=== PATIENT | female | born 1975 | race Caucasian/White ===

== ENCOUNTER 2020-03-14 20:32 | Emergency (ER) | payer OTHER ==
[2020-03-14] MEDS ORDERED: DEXAMETHASONE 10 MG/ML VIAL PO STA (21:11)
[2020-03-14] MEDS ORDERED: CHERRY SYRUP 10 ML UDC PO ONE (21:11)
[2020-03-14 21:23] LABS: RAPID STREP SCREEN Negative (Negative)
--- NOTE | 2020-03-14 21:28 | ED Physician Documentation ---
History of Present Illness - Stated complaint Stated Complaint: SWOLLEN GLANDS - Chief complaint Chief Complaint: Heent - History obtained from History obtained from: Patient - History of Present Illness Pain level max: 6 Pain level now: 5 - Additonal information Additional information: 44-year-old female presents to the emergency department for sore throat for the past week. She complains of swollen lymph nodes on her bilateral neck. No fevers. Intermittent headache. No rhinorrhea or congestion. No cough. Worse with swallowing, better with rest. History of recurrent strep throat in the past. No vomiting. No abdominal pain. Denies any possibility of . 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 - Present Medications Home Medications: Ambulatory Orders Medication Instructions Recorded Confirmed Cephalexin [Keflex] 500 mg PO Q6H #40 capsule 03/14/20 buPROPion [Wellbutrin Xl] 1 tab PO DAILY 03/14/20 03/14/20 predniSONE [Prednisone] 40 mg PO DAILY #10 tablet 03/14/20 - Allergies Allergies/Adverse Reactions: Allergies Allergy/AdvReac Type Severity Reaction Status Date / Time No Known Drug Allergies Allergy Verified 03/14/20 20:40 - Social History Does the pt smoke?: Yes Smoking Status: Current every day smoker Does the pt drink ETOH?: Yes ETOH Use: Wine Does the pt have substance abuse?: No - Immunizations Immunizations are current?: Yes - POLST Patient has POLST: No PD ED PE NORMAL - Vitals Vital signs reviewed: Yes - General General: Alert and oriented X 3, No acute distress - HEENT HEENT: Moist mucous membranes, Other (Posterior oropharynx is erythematous with tonsillar exudates. Normal phonation. No trismus. Uvula midline.) - Neck Neck: Supple, no meningeal sign, Other (Shotty anterior lymphadenopathy) - Cardiac Cardiac: RRR - Respiratory Respiratory: No respiratory distress, Clear bilaterally - Abdomen Abdomen: Soft, Non tender, Non distended - Derm Derm: Warm and dry - Neuro Neuro: Alert and oriented X 3 - Psych Psych: Normal mood, Normal affect Results - Vitals Vitals: Vital Signs - 24 hr 03/14/20 03/14/20 20:40 21:49 Temperature 37.1 C 36.3 C L Heart Rate 97 82 Respiratory 16 16 Rate Blood Pressure 146/96 H 146/94 H O2 Saturation 98 100 Oxygen O2 Source Room air - Labs Labs: Laboratory Tests 03/14/20 21:10 Group A Strep Rapid Negative PD MEDICAL DECISION MAKING - ED course Complexity details: reviewed results, considered differential, d/w patient ED course: Patient with what appears to be strep pharyngitis clinically. We did discuss alternative etiologies such as mono, she declines testing for that at this time. Given dexamethasone. We will place on Keflex as well. Patient is well-appearing, nontoxic. Afebrile. No evidence of abscess. No evidence of sepsis. Lymph nodes are small, mildly tender and mobile. Patient counseled regarding signs and symptoms for which I believe and urgent re-evaluation would be necessary. Patient with good understanding of and agreement to plan and is comfortable going home at this time This document was made in part using voice recognition software. While efforts are made to proofread this document, sound alike and grammatical errors may occur. Departure - Departure Disposition: 01 Home, Self Care Clinical Impression: Pharyngitis Qualifiers: Pharyngitis/tonsillitis etiology: unspecified etiology Qualified Code(s): J02.9 - Acute pharyngitis, unspecified Condition: Good Instructions: ED Strep Pharyngitis Poss Follow-Up: Provider,Other [Primary Care Provider] - Within 1 week Prescriptions: Cephalexin [Keflex] 500 mg PO Q6H #40 capsule predniSONE [Prednisone] 40 mg PO DAILY #10 tablet Comments: Take all antibiotics until gone. Return if you worsen. Follow-up with your doctor for repeat evaluation in 1 week. If you are still not feeling well, they should consider blood work at that time. Discharge Date/Time: 03/14/20 21:51
[2020-03-14] MEDS ORDERED: cephALEXin 250 MG CAPSULE PO STA (21:41)
[2020-03-14 21:51] VITALS: BP 146/94
== END 2020-03-14 21:51 | disposition home or self-care (01) ==
LOC: ED 20:32
DX: J02.9 Acute pharyngitis, unspecified (principal); F17.200 Nicotine dependence, unspecified, uncomplicated
CPT/HCPCS: 87070; 87430; 99283; 99284; A9270

== ENCOUNTER 2020-03-17 00:07 | Emergency (ER) | payer OTHER ==
--- NOTE | 2020-03-17 00:14 | ED Physician Documentation ---
History of Present Illness - Stated complaint Stated Complaint: LYMPH SWELLING - History obtained from History obtained from: Patient - Additonal information Additional information: Patient is a 44-year-old female presents with multiple complaints. She is complaining of severe anxiety and is concerned that she could possibly have lymphoma she reports that her mother is currently being treated for lymphoma and she feels like her entire lymphatic system no swelling. She denies any fevers she was seen here recently and was started on Keflex for presumed strep pharyngitis as well as prednisone. She reports after taking the prednisone that her hands and feet are swelling and she is unable to fall asleep she is also complaining of severe anxiety as her and 2 sons are moving to [place] and she will be away from them for significant period of time she denies auditory or visual hallucinations or any homicidal or suicidal thoughts Review of Systems Constitutional: reports: Other (Diffuse swelling) Eyes: reports: Reviewed and negative Ears: reports: Reviewed and negative Nose: reports: Reviewed and negative Throat: reports: Reviewed and negative Cardiac: reports: Reviewed and negative Respiratory: reports: Reviewed and negative GI: reports: Reviewed and negative : reports: Reviewed and negative Skin: reports: Reviewed and negative Musculoskeletal: reports: Other (Reports swelling of diffuse lymphatic system.) Neurologic: reports: Reviewed and negative Psychiatric: reports: Anxiety Endocrine: reports: Reviewed and negative Immunocompromised: reports: Reviewed and negative PD PAST MEDICAL HISTORY - Past Medical History Psych: Depression, Anxiety - Past Surgical History Past Surgical History: Yes General: Cholecystectomy 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 - Present Medications Home Medications: Ambulatory Orders Medication Instructions Recorded Confirmed Cephalexin [Keflex] 500 mg PO Q6H #40 capsule 03/14/20 buPROPion [Wellbutrin Xl] 1 tab PO DAILY 03/14/20 03/14/20 predniSONE [Prednisone] 40 mg PO DAILY #10 tablet 03/14/20 - Allergies Allergies/Adverse Reactions: Allergies Allergy/AdvReac Type Severity Reaction Status Date / Time No Known Drug Allergies Allergy Verified 03/14/20 20:40 - Social History Does the pt smoke?: Yes Smoking Status: Current every day smoker Does the pt drink ETOH?: Yes Does the pt have substance abuse?: No - Immunizations Immunizations are current?: Yes - POLST Patient has POLST: No PD ED PE NORMAL - Vitals Vital signs reviewed: Yes - General General: Alert and oriented X 3, No acute distress, Well developed/nourished - HEENT HEENT: Atraumatic, PERRL, Moist mucous membranes, Dentition benign - Neck Neck: Supple, no meningeal sign, No JVD, Other (There is no obvious anterior posterior cervical lymphadenopathy no occipital lymphadenopathy there is no thyromegaly no JVD and no bruits.) - Cardiac Cardiac: RRR, No murmur - Respiratory Respiratory: No respiratory distress, Clear bilaterally - Abdomen Abdomen: Normal bowel sounds, Soft, Non tender, Non distended, No organomegaly - Derm Derm: Normal color, Warm and dry, No rash - Extremities Extremities: No deformity, No tenderness to palpate, Normal ROM s pain, No edema, No calf tenderness / cord - Neuro Neuro: Alert and oriented X 3, quality assurance nurse 2-12 intact, No motor deficit, No sensory deficit, Normal speech - Psych Psych: Other (Anxious.) Results - Vitals Vitals: Vital Signs - 24 hr 03/17/20 00:22 Temperature 37.1 C Heart Rate 95 Respiratory 18 Rate Blood Pressure 150/95 H O2 Saturation 98 Oxygen O2 Source Room air - Labs Labs: Laboratory Tests 03/17/20 03/17/20 03/17/20 02:00 02:00 02:00 WBC 6.6 RBC 3.97 L Hgb 12.7 Hct 37.9 MCV 95.5 MCH 32.0 H MCHC 33.5 RDW 12.2 Plt Count 280 MPV 10.0 Neut # (Auto) 2.8 Lymph # (Auto) 2.9 [place] # (Auto) 0.7 Eos # (Auto) 0.1 Baso # (Auto) 0.1 Absolute Nucleated RBC 0.00 Nucleated RBC % 0.0 Sodium 139 Potassium 3.4 L Chloride 105 Carbon Dioxide 20 L Anion Gap 14.0 H BUN 19 Creatinine 0.5 Estimated GFR (MDRD) 135 Glucose 99 Calcium 8.5 Total Bilirubin 0.7 AST 17 ALT 20 Alkaline Phosphatase 56 Total Protein 5.9 L Albumin 3.8 Globulin 2.0 L Albumin/Globulin Ratio 1.8 Lipase 23 Infectious [place] Assay NEGATIVE PD MEDICAL DECISION MAKING - ED course Complexity details: considered differential ED course: 44-year-old female with anxiety presents with multiple complaints she is complaining of severe anxiety she feels like her entire body is swelling and then all of her lymph nodes are swelling she presents with her mother who is currently being treated for lymphoma. We did do screening blood work, Which shows no acute emergent findings. She had a rapid strep several days ago that was negative mono was negative today as well. We did send a COVID screening as well that the patient will need to follow-up on. She also reports she is new to the area and is having severe anxiety secondary to the fact that her mom has lymphoma and also that her and 2 sons are leaving this weekend to [place] and she will be away from them for an extended period of time. Departure - Departure Disposition: 01 Home, Self Care Clinical Impression: Anxiety Edema Qualifiers: Edema type: unspecified Qualified Code(s): R60.9 - Edema, unspecified Condition: Stable Instructions: ED Stress React, ED Edema Legs Bilateral Follow-Up: Yahir Ackerman MD [Provider Admit Priv/Credential] - 03/17/20 Comments: Discontinue prednisone. Please call a primary care provider today to schedule follow-up. Call the hospital to follow-up with your lab results.
[2020-03-17 02:16] LABS: BASOPHILS # (AUTO) 0.1 10^3/uL (0.0-0.1); BASOPHILS % (AUTO) 0.9 %; EOSINOPHILS # (AUTO) 0.1 10^3/uL (0.0-0.7); EOSINOPHILS % (AUTO) 1.5 %; HGB - HEMOGLOBIN 12.7 g/dL (12.0-16.0); LYMPHOCYTES # (AUTO) 2.9 10^3/uL (1.5-3.5); LYMPHOCYTES % (AUTO) 43.7 %; MEAN CORPUSCULAR HGB CONC 33.5 g/dL (32.0-36.0); MEAN CORPUSCULAR VOLUME 95.5 fL (81.0-99.0); MONOCYTES # (AUTO) 0.7 10^3/uL (0.0-1.0); NEUTROPHILS # (AUTO) 2.8 10^3/uL (1.5-6.6); NEUTROPHILS % (AUTO) 42.6 %; PLT - PLATELET COUNT 280 10^3/uL (130-450); RED BLOOD COUNT 3.97 10^6/uL (4.20-5.40); RED CELL DISTRIBUTION WIDTH 12.2 % (12.0-15.0); WHITE BLOOD COUNT 6.6 x10^3/uL (4.8-10.8)
[2020-03-17 02:29] LABS: ALBUMIN 3.8 g/dL (3.2-5.5); ALBUMIN/GLOBULIN RATIO 1.8 (1.0-2.2); BILIRUBIN,TOTAL 0.7 mg/dL (0.2-1.0); CALCIUM 8.5 mg/dL (8.5-10.3); CREATININE 0.5 mg/dL (0.4-1.0); TOTAL PROTEIN 5.9 g/dL (6.7-8.2)
[2020-03-17] MEDS ORDERED: LORazepam 1 MG TABLET PO STA (02:58)
[2020-03-17 03:26] VITALS: BP 140/83
== END 2020-03-17 03:26 | disposition home or self-care (01) ==
LOC: ED 00:07
DX: F41.9 Anxiety disorder, unspecified (principal); R60.9 Edema, unspecified; Z80.8 Family history of malignant neoplasm of other organs or systems; F17.200 Nicotine dependence, unspecified, uncomplicated; Z20.828 Contact with and (suspected) exposure to other viral communicable diseases
CPT/HCPCS: 36415; 80053; 83690; 85025; 86308; 87635; 99283; 99284; J8499

== ENCOUNTER 2020-11-29 01:03 | Emergency (ER) | payer OTHER ==
[2020-11-29 02:41] LABS: BILIRUBIN,URINE NEGATIVE (NEGATIVE); CLARITY,URINE CLEAR (CLEAR); GLUCOSE, URINE (UA) NEGATIVE (NEGATIVE); KETONES,URINE (UA) NEGATIVE (NEGATIVE); LEUKOCYTE ESTERASE, URINE NEGATIVE (NEGATIVE); NITRITE,URINE NEGATIVE (NEGATIVE); OCCULT BLOOD,URINE LARGE (NEGATIVE); PH,URINE 6.5 PH (5.0-7.5); PROTEIN,URINE NEGATIVE (NEGATIVE); UROBILINOGEN,URINE 0.2 (NORMAL) E.U./dL (NORMAL)
[2020-11-29 02:46] LABS: BACTERIA,URINE Few /HPF (None Seen); MUCUS,URINE Marked Strands; SQUAMOUS EPITHELIAL CELL,UR MOD Squamous (<= Few); WBC,URINE 0-3 /HPF (0-5)
--- NOTE | 2020-11-29 02:47 | ED Physician Documentation ---
PD HPI FEMALE - Stated complaint Stated Complaint: FEMALE - Chief complaint Chief Complaint: Abd Pain - History obtained from History obtained from: Patient - History of Present Illness Timing - onset: How many days ago (3) Timing - duration: Days (3) Timing - details: Gradual onset, Still present Associated symptoms: Dysuria, Urinary frequency, Hematuria. No: Fever Contributing factors: No: Similar symptoms before: Diagnosis (UTI) Recently seen: Emergency Dept - Additional information Additional information: 45-year-old female who has had urinary tract infection 3 times previously has had symptoms again of urinary urgency frequency and dysuria and she has noted blood in the urine as well. She has had blood in her urine previously from infection as well. She indicates that she recently went into the emergency department at [facility] last month and was prescribed antibiotic for urinary tract infection and she was called 4 days later in the antibiotics was switched from cephalexin to metronidazole. Her symptoms resolved. Her symptoms have now come back and she has blood in the urine. She denies any flank pain she is had some transient nausea. Review of Systems Constitutional: reports: Fatigue. denies: Fever Eyes: denies: Decreased vision Ears: denies: Ear pain Nose: denies: Rhinorrhea / runny nose, Congestion Throat: denies: Sore throat Cardiac: denies: Chest pain / pressure, Palpitations Respiratory: denies: Dyspnea, Cough GI: reports: Nausea. denies: Vomiting : reports: Dysuria, Frequency, Hematuria Skin: denies: Rash Musculoskeletal: reports: Back pain. 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 - Present Medications Home Medications: Ambulatory Orders Medication Instructions Recorded Confirmed Nitrofurantoin Monohyd/M-Cryst 100 mg PO BID #10 cap 11/29/20 [Macrobid 100 mg Capsule] - Allergies Allergies/Adverse Reactions: Allergies Allergy/AdvReac Type Severity Reaction Status Date / Time No Known Drug Allergies Allergy Verified 11/29/20 01:35 - Social History Does the pt smoke?: Yes Smoking Status: Current every day smoker Does the pt drink ETOH?: Yes Does the pt have substance abuse?: No - Immunizations Immunizations are current?: Yes - POLST Patient has POLST: No PD ED PE NORMAL - Vitals Vital signs reviewed: Yes (Hypertensive) - General General: Alert and oriented X 3, No acute distress, Well developed/nourished - HEENT HEENT: Atraumatic, PERRL, EOMI - Neck Neck: Supple, no meningeal sign - Cardiac Cardiac: RRR, No murmur - Respiratory Respiratory: No respiratory distress, Clear bilaterally - Abdomen Abdomen: Normal bowel sounds, Soft, Non distended, No organomegaly, Other (Mild suprapubic tenderness) - Back Back: No CVA TTP, No spinal TTP - Derm Derm: Normal color, Warm and dry, No rash - Extremities Extremities: No deformity, No edema - Neuro Neuro: Alert and oriented X 3, manager fixed income 2-12 intact, No motor deficit, No sensory deficit, Normal speech Eye Opening: Spontaneous Motor: Obeys Commands Verbal: Oriented GCS Score: 15 - Psych Psych: Normal mood, Normal affect Results - Vitals Vitals: Vital Signs - 24 hr 11/29/20 01:15 Temperature 36.6 C Heart Rate 95 Respiratory 18 Rate Blood Pressure 157/95 H O2 Saturation 100 Oxygen O2 Source Room air - Labs Labs: Laboratory Tests 11/29/20 01:50 Urine Color YELLOW Urine Clarity CLEAR Urine pH 6.5 Ur Specific [place] 1.025 Urine Protein NEGATIVE Urine Glucose (UA) NEGATIVE Urine Ketones NEGATIVE Urine Occult Blood LARGE H Urine Nitrite NEGATIVE Urine Bilirubin NEGATIVE Urine Urobilinogen 0.2 (NORMAL) Ur Leukocyte Esterase NEGATIVE Urine RBC 11-25 H Urine WBC 0-3 Ur Squamous Epith Cells MOD Squamous H Urine Bacteria Few Urine Mucus Marked Strands Ur Microscopic Review INDICATED Urine Culture Comments NOT INDICATED Procedures - Bedside sono Bedside sono by EMP: With use of bedside ultrasound the right kidney is imaged there is no evidence of hydronephrosis and the kidney is sonographically nontender. PD MEDICAL DECISION MAKING - ED course Complexity details: reviewed results, re-evaluated patient, considered differential, d/w patient ED course: 45-year-old female with urinary symptoms has hematuria and bacteria in her urine and she does not have leukocytes or nitrites and she has left squamous cells that she does not meet grade for culture. She is fairly certain her symptoms are identical to prior and she does have the hematuria. She is not on her menses she is about midcycle. She is diagnosed with hemorrhagic cystitis we will place her on a short course of Macrobid as she does prefer prefer a drink. Departure - Departure Disposition: Home, Self Care Clinical Impression: Urinary tract infection Qualifiers: Urinary tract infection type: acute cystitis Hematuria presence: with hematuria Qualified Code(s): N30.01 - Acute cystitis with hematuria Condition: Stable Instructions: ED UTI Cystitis Female Follow-Up: JACK Mccormickcharisma Matt [Provider Group] Prescriptions: Nitrofurantoin Monohyd/M-Cryst [Macrobid 100 mg Capsule] 100 mg PO BID #10 cap
[2020-11-29] MEDS ORDERED: NITROFURANTOIN MACRO 100 MG CAPSULE PO STA (03:56)
[2020-11-29 04:21] VITALS: BP 135/83
== END 2020-11-29 04:25 | disposition home or self-care (01) ==
LOC: ED 01:03
DX: N30.01 Acute cystitis with hematuria (principal); F17.200 Nicotine dependence, unspecified, uncomplicated
CPT/HCPCS: 81001; 99283; A9270; 81003; 87086

== ENCOUNTER 2022-11-20 00:18 | Emergency (ER) | payer MEDICAID, OTHER ==
--- NOTE | 2022-11-20 01:02 | ED Physician Documentation ---
PD HPI HEENT - Stated complaint Stated Complaint: THROAT PX - Chief complaint Chief Complaint: General - History obtained from History obtained from: Patient - History of Present Illness Timing - onset: How many weeks ago (2) Timing - duration: Weeks (2) Timing - details: Gradual onset, Still present Worsens: Swalllowing Associated symptoms: Fever, Swollen nodes, Headache, Other (worsening muscle aches diffusely and has noted small tender lumps under skin on arms and now legs. No rash per se.). No: Congestion, Facial swelling, Cough Similar symptoms before: Has not had sx before Review of Systems Constitutional: reports: Fever, Myalgias, Fatigue Nose: denies: Rhinorrhea / runny nose, Congestion Throat: reports: Sore throat, Swollen tonsils Respiratory: denies: Cough GI: reports: Nausea. denies: Abdominal Pain, Vomiting, Diarrhea Skin: denies: Rash Neurologic: reports: Generalized weakness, Headache. 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 - Present Medications Home Medications: Ambulatory Orders Medication Instructions Recorded Confirmed Nitrofurantoin Monohyd/M-Cryst 100 mg PO BID #10 cap 11/29/20 [Macrobid 100 mg Capsule] HYDROcod/ACETAM 5/325 [[place] 5/325] 1 ea PO Q6H PRN #15 tablet 11/20/22 cephALEXin [Keflex] 500 mg PO TID 10 Days #30 cap 11/20/22 dexAMETHasone [Decadron] 4 mg PO DAILY #5 tablet 11/20/22 - Allergies Allergies/Adverse Reactions: Allergies Allergy/AdvReac Type Severity Reaction Status Date / Time No Known Drug Allergies Allergy Verified 11/20/22 00:25 - Social History Does the pt smoke?: Yes Smoking Status: Current every day smoker Does the pt drink ETOH?: Yes Does the pt have substance abuse?: No - Immunizations Immunizations are current?: Yes - POLST Patient has POLST: No PD ED PE NORMAL - Vitals Vital signs reviewed: Yes - General General: Alert and oriented X 3, Well developed/nourished - HEENT HEENT: No: Pharynx benign (redness with swelling and exudate on tonsils, more to the left. Positive anterior adenopathy of neck. ) - Neck Neck: Supple, no meningeal sign - Cardiac Cardiac: RRR, No murmur, No rub - Respiratory Respiratory: No respiratory distress, Clear bilaterally - Abdomen Abdomen: Soft, Non tender, No organomegaly - Derm Derm: Normal color, Warm and dry, Other (there are several small tender lumps under skin along the dorsal aspect of forearms, and some on lateral lower legs. No skin sores. Major joints without redness nor effusions. ) - Extremities Extremities: No edema, No calf tenderness / cord, Other (tender several subcut nodules as above. ) - Neuro Neuro: Alert and oriented X 3, No motor deficit, Normal speech Results - Vitals Vitals: Vital Signs - 24 hr 11/20/22 11/20/22 00:21 02:53 Temperature 36.0 C L 36.6 C Heart Rate 91 83 Respiratory 18 18 Rate Blood Pressure 136/92 H 155/99 H O2 Saturation 100 100 Oxygen O2 Source Room air - Labs Labs: Laboratory Tests 11/20/22 11/20/22 11/20/22 01:42 01:58 01:58 WBC 5.5 RBC 3.92 L Hgb 11.0 L Hct 35.1 L MCV 89.5 MCH 28.1 MCHC 31.3 L RDW 13.6 Plt Count 290 MPV 10.0 Neut # (Auto) 2.3 Lymph # (Auto) 2.2 [place] # (Auto) 0.7 Eos # (Auto) 0.3 Baso # (Auto) 0.1 Absolute Nucleated RBC 0.00 Nucleated RBC % 0.0 Infectious [place] Assay NEGATIVE Group A Strep Rapid Negative PD Medical Decision Making - ED course Reviewed Lab Results: rapid strep is negative. [place] is negative. She has subcutaneous nodules on forearms, has had fever, and has polyarthralgias. No carditis evident. I had ordered ESR/CRP but did not run (not sure why cancelled and patient gone from ED). Still though, without the ESR, if the patient is positive culture for GAS, she would have 1 major and 2 minor criteria for RF. Otherwise just immune response to viral illness? Departure - Departure Disposition: 01 Home, Self Care Clinical Impression: Acute pharyngitis, Polymyalgia Condition: Stable Record reviewed to determine appropriate education?: Yes Instructions: ED Strep Pharyngitis Poss Prescriptions: dexAMETHasone [Decadron] 4 mg PO DAILY #5 tablet cephALEXin [Keflex] 500 mg PO TID 10 Days #30 cap HYDROcod/ACETAM 5/325 [[place] 5/325] 1 ea PO Q6H PRN #15 tablet PRN Reason: Pain Comments: Your monotest is negative. Your rapid strep test is negative but we are doing a culture of that swab. This would result in a couple of days and we will call you if its showing signs of bacterial growth. At this point it sounds most likely to be bacterial given your symptoms and the appearance of your tonsils. I would treated empirically to begin with with cephalexin antibiotic as well as Decadron steroid for inflammation. Stay well-hydrated. Add Tylenol every 4-6 hours as needed for pain or hydrocodone/acetaminophen if needed for worse pain. Recheck if not improving over the next several days and resolved by 5 or 6 days. Return if worse. I believe the general symptoms you have with the body aches and small feelings of tender spots etc. are an inflammatory response to the throat infection and should resolve as the infection improves. I sent your prescriptions to [facility] in [place]. I am prescribing a short course of narcotic pain medication for you. These are potentially dangerous and addictive medications that should be used carefully. These medications may constipate you. Take an [id number] stool softener such as docusate twice daily with plenty of water while taking these medications. If you go 24 hours without a bowel movement, take [id number] MiraLAX, per package instructions. Do not drink or drive while taking these medications. If you received narcotic or sedating medications while in the emergency department do not drive for 24 hours. Store this medication in a safe, secure place and out of reach of children. It is a violation of federal law to give or sell this medication to another person or to use in a manner other than prescribed. The ED will not refill narcotic prescriptions, including prescriptions lost or stolen. You can dispose of unwanted medications at the [facility]'s office or at several pharmacies such as [facility]. Discharge Date/Time: 11/20/22 02:55
[2022-11-20 01:57] LABS: RAPID STREP SCREEN Negative (Negative)
[2022-11-20 02:09] LABS: BASOPHILS # (AUTO) 0.1 10^3/uL (0.0-0.1); BASOPHILS % (AUTO) 1.1 %; EOSINOPHILS # (AUTO) 0.3 10^3/uL (0.0-0.7); EOSINOPHILS % (AUTO) 5.4 %; HCT - HEMATOCRIT 35.1 % (37.0-47.0); LYMPHOCYTES # (AUTO) 2.2 10^3/uL (1.5-3.5); LYMPHOCYTES % (AUTO) 39.7 %; MEAN CORPUSCULAR HEMOGLOBIN 28.1 pg (27.0-31.0); MEAN CORPUSCULAR HGB CONC 31.3 g/dL (32.0-36.0); MEAN CORPUSCULAR VOLUME 89.5 fL (81.0-99.0); MONOCYTES # (AUTO) 0.7 10^3/uL (0.0-1.0); MONOCYTES % (AUTO) 12.5 %; NEUTROPHILS # (AUTO) 2.3 10^3/uL (1.5-6.6); NEUTROPHILS % (AUTO) 41.1 %; PLT - PLATELET COUNT 290 10^3/uL (130-450); RED BLOOD COUNT 3.92 10^6/uL (4.20-5.40); RED CELL DISTRIBUTION WIDTH 13.6 % (12.0-15.0); WHITE BLOOD COUNT 5.5 x10^3/uL (4.8-10.8)
[2022-11-20 02:14] LABS: INFECTIOUS MONONUCLEOSIS NEGATIVE (Negative)
[2022-11-20] MEDS: cephALEXin 250 MG CAPSULE PO STA (02:15)
[2022-11-20] MEDS: ACETAMINOPHEN 325 MG TABLET PO STA (02:15)
[2022-11-20] MEDS: DEXAMETHASONE 10 MG/ML VIAL PO STA (02:16)
[2022-11-20] MEDS: CHERRY SYRUP 10 ML UDC PO ONE (02:18)
[2022-11-20 02:55] VITALS: BP 155/99
== END 2022-11-20 02:55 | disposition home or self-care (01) ==
LOC: ED 00:18
DX: J02.9 Acute pharyngitis, unspecified (principal); M35.3 Polymyalgia rheumatica; F17.200 Nicotine dependence, unspecified, uncomplicated
CPT/HCPCS: 36415; 85025; 86308; 87070; 87430; 99283; A9270; 85651; 86140

== ENCOUNTER 2023-01-26 00:13 | Emergency (ER) | payer MEDICAID ==
[2023-01-26 00:41] VITALS: BP 150/88
[2023-01-26] MEDS ORDERED: CHERRY SYRUP 10 ML UDC PO ONE (00:51)
[2023-01-26] MEDS ORDERED: DEXAMETHASONE 10 MG/ML VIAL PO STA (00:51)
--- NOTE | 2023-01-26 00:55 | ED Physician Documentation ---
History of Present Illness - Stated complaint Stated Complaint: NECK/KNEE PX - Chief complaint Chief Complaint: Ext Problem - History obtained from History obtained from: Patient - Additonal information Additional information: 47yF with history of autoimmune disease p/w polyarthralgia X several weeks keeping her from sleep. denies fever or other symptoms. 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 - Present Medications Home Medications: Ambulatory Orders Medication Instructions Recorded Confirmed predniSONE [Prednisone 21-TAB dose 60 mg PO QDAC 6 Days #21 tab 01/26/23 pack] - Allergies Allergies/Adverse Reactions: Allergies Allergy/AdvReac Type Severity Reaction Status Date / Time No Known Drug Allergies Allergy Verified 01/26/23 00:38 - Social History Does the pt smoke?: Yes Smoking Status: Current every day smoker Does the pt drink ETOH?: Yes Does the pt have substance abuse?: No - Immunizations Immunizations are current?: Yes - POLST Patient has POLST: No PD ED PE NORMAL - Vitals Vital signs reviewed: Yes - General General: Alert and oriented X 3, No acute distress, Well developed/nourished - HEENT HEENT: Atraumatic, PERRL, EOMI - Neck Neck: Supple, no meningeal sign - Derm Derm: Normal color, Warm and dry - Extremities Extremities: Other (R knee ttp. BL hips tender with rom. 2+ distal pulses all extremities) Results - Vitals Vitals: Vital Signs - 24 hr 01/26/23 00:34 Temperature 36.8 C Heart Rate 96 Respiratory 16 Rate Blood Pressure 150/88 H O2 Saturation 97 Oxygen O2 Source Room air PD Medical Decision Making - ED course ED course: 47yF with pmh autoimmune disease p/w chronic polyarthralgias. no fever. steroids and rheumatology referral provided. return precautions given. Departure - Departure Disposition: 01 Home, Self Care Clinical Impression: Autoimmune disease, Polyarthralgia Condition: Stable Instructions: Antinuclear Antibody Follow-Up: SHAWN VILLASEÑOR MD [Physician No Access] - Prescriptions: predniSONE [Prednisone 21-TAB dose pack] 60 mg PO QDAC 6 Days #21 tab Comments: You are seen in the emergency department for joint pain and swelling. An electronic prescription for steroids was sent to [facility] in [place]. Please follow-up with your primary care provider. Return to the ED for any other concerns. You also should follow-up with a marine railway operator. Referral enclosed. Forms: PCP List Discharge Date/Time: 01/26/23 01:13
== END 2023-01-26 01:13 | disposition home or self-care (01) ==
LOC: ED 00:13
DX: D89.89 Other specified disorders involving the immune mechanism, not elsewhere classified (principal); M25.50 Pain in unspecified joint; M25.40 Effusion, unspecified joint; F17.200 Nicotine dependence, unspecified, uncomplicated
CPT/HCPCS: 99282; 99283; A9270

== ENCOUNTER 2023-02-08 23:20 | Emergency (ER) | payer MEDICAID ==
[2023-02-08 23:29] VITALS: BP 150/90
[2023-02-08 23:49] LABS: BILIRUBIN,URINE NEGATIVE (NEGATIVE); GLUCOSE, URINE (UA) NEGATIVE (NEGATIVE); KETONES,URINE (UA) TRACE mg/dL (NEGATIVE); LEUKOCYTE ESTERASE, URINE NEGATIVE (NEGATIVE); NITRITE,URINE NEGATIVE (NEGATIVE); OCCULT BLOOD,URINE SMALL (NEGATIVE); PH,URINE 5.5 PH (5.0-7.5); PROTEIN,URINE NEGATIVE (NEGATIVE); UROBILINOGEN,URINE 0.2 (NORMAL) E.U./dL (NORMAL)
[2023-02-08 23:51] LABS: CLARITY,URINE CLEAR (CLEAR)
[2023-02-08 23:52] LABS: HCG UR QUAL NEGATIVE
[2023-02-08 23:55] LABS: BACTERIA,URINE Rare /HPF (None Seen); MUCUS,URINE Moderate Strands; RBC,URINE 0-5 /HPF (0-5); SQUAMOUS EPITHELIAL CELL,UR FEW Squamous (<= Few); WBC,URINE 0-3 /HPF (0-5)
--- NOTE | 2023-02-09 00:48 | ED Physician Documentation ---
PD HPI FEMALE - Stated complaint Stated Complaint: - Chief complaint Chief Complaint: UTI - History obtained from History obtained from: Patient - Additional information Additional information: Patient has seemingly to unrelated complaints. Her chief complaint is 2 days of frequent urination with burning dysuria; similar symptoms with her prevoius UTIs. She also says that she has pain and swelling in all 4 extremities, particularly in her forearms and wrists, ankles and soles of feet. The swelling and pain has been going on for "a few weeks" (per patient). She says she has had these sympto ms in the past, and was once told by a physician in this emergency department that one of the suspected diagnosis was rheumatic fever. She has been given courses of steroids in the past from this emergency department; once for pharyngitis which she says was not as effective for her discomfort, and another time was for these extremity/joint aches and swelling, and that steroids seem to help substantially. She says she is working on obtaining a rheumatology consult. Review of Systems Constitutional: reports: Reviewed and negative : reports: Dysuria, Frequency. 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 - Present Medications Home Medications: Ambulatory Orders Medication Instructions Recorded Confirmed predniSONE [Prednisone 21-TAB dose 60 mg PO QDAC 6 Days #21 tab 01/26/23 pack] dexAMETHasone [Decadron] 4 mg PO DAILY #5 tablet 02/09/23 - Allergies Allergies/Adverse Reactions: Allergies Allergy/AdvReac Type Severity Reaction Status Date / Time No Known Drug Allergies Allergy Verified 02/08/23 23:22 - Social History Does the pt smoke?: Yes Smoking Status: Current every day smoker Does the pt drink ETOH?: Yes Does the pt have substance abuse?: No - Immunizations Immunizations are current?: Yes - POLST Patient has POLST: No PD ED PE NORMAL - Vitals Vital signs reviewed: Yes - General General: Alert and oriented X 3, No acute distress, Well developed/nourished - Cardiac Cardiac: RRR, No murmur - Abdomen Abdomen: Soft, Non tender - Back Back: No CVA TTP - Derm Derm: Normal color, Warm and dry, Other (no visible nor palpable nodules on any extremity. No obvious swelling of extremities, joints. No erythema, no abnormal warmth/heat to touch) - Extremities Extremities: No tenderness to palpate, Normal ROM s pain, No edema Results - Vitals Vitals: Oxygen O2 Source Room air - Labs Labs: Laboratory Tests 02/08/23 02/08/23 23:40 23:40 Urine Color YELLOW Urine Clarity CLEAR Urine pH 5.5 Ur Specific [place] >=1.030 H Urine Protein NEGATIVE Urine Glucose (UA) NEGATIVE Urine Ketones TRACE Urine Occult Blood SMALL H Urine Nitrite NEGATIVE Urine Bilirubin NEGATIVE Urine Urobilinogen 0.2 (NORMAL) Ur Leukocyte Esterase NEGATIVE Urine RBC 0-5 Urine WBC 0-3 Ur Squamous Epith Cells FEW Squamous Urine Bacteria Rare Urine Mucus Moderate Strands Ur Microscopic Review INDICATED Urine Culture Comments NOT INDICATED Urine HCG, Qual NEGATIVE PD Medical Decision Making - ED course Complexity details: reviewed results, re-evaluated patient, considered differential, d/w patient ED course: Urinalysis has small blood only on macro (although also concentrated with specific gravity greater than 1.030). There are no abnormalities on the microscopic test. This is essentially a normal/noncontributory urinalysis, and certainly does not suggest urine tract infection. I discussed this result with the patient, and I did discuss option to treat empirically for UTI although I a also opined that this is not necessary given no evidence of UTI on this test. She agrees to defer antibiotics until and unless symptoms worsen and reevaluation with appropriate testing. Regarding her joint aches. I reviewed a previous visits chart for this patient which indicated that RF was a consideration, with palpable nodules on the extremities. At that time, she was given prednisone with a prescription for same, and she says this helped significantly with the symptoms. I do not appreciate any nodules on today's exam. Her description increasingly sounds like she is describing specifically aches in the joints, specifically involving the ankles and wrists. Simple osteoarthritis seems more likely at this point, although she is somewhat young for this diagnosis. Further testing might be helpful in determining etiology and, in turn, perhaps targeted treatment. This testing can take place in the outpatient setting at the discretion of her primary care provider, she is in the process of obtaining referral for a grain commodity manager. She is given a dose of prednisone in the ER, and a prescription for short course of same. Departure - Departure Disposition: 01 Home, Self Care Clinical Impression: Polyarthralgia Condition: Good Instructions: ED Joint Pain, ED Dysuria Uncertain Cause Prescriptions: dexAMETHasone [Decadron] 4 mg PO DAILY #5 tablet Comments: Your urinalysis did not have any remarkable results; the urinalysis is not suggestive of a urinary tract infection nor any other specific diagnosis. The cause of your urinary symptoms is not apparent at this time. Based on your worsening (though ongoing) generalized joint pains, and the relief you experienced with these same symptoms in the recent past with oral steroids, you were given a dose of Decadron (steroid) in the emergency department, and I am electronically submitted a prescription (to [facility] pharmacy in [place]) for the same medication to be taken once a day for the next 5 days. Discharge Date/Time: 02/09/23 01:34
[2023-02-09] MEDS ORDERED: DEXAMETHASONE 10 MG/ML VIAL PO STA (01:22)
[2023-02-09] MEDS ORDERED: CHERRY SYRUP 10 ML UDC PO ONE (01:22)
== END 2023-02-09 01:34 | disposition home or self-care (01) ==
LOC: ED 23:20
DX: M25.572 Pain in left ankle and joints of left foot (principal); M25.571 Pain in right ankle and joints of right foot; M25.532 Pain in left wrist; M25.531 Pain in right wrist; R30.0 Dysuria; R35.0 Frequency of micturition; F17.200 Nicotine dependence, unspecified, uncomplicated
CPT/HCPCS: 81001; 81025; 99283; A9270; 81003; 87086

== ENCOUNTER 2023-11-24 00:51 | Emergency (ER) | payer OTHER, MEDICAID ==
[2023-11-24 01:17] VITALS: BP 139/87; O2SAT 97
[2023-11-24 01:33] LABS: BILIRUBIN,URINE NEGATIVE (NEGATIVE); GLUCOSE, URINE (UA) NEGATIVE (NEGATIVE); KETONES,URINE (UA) NEGATIVE (NEGATIVE); LEUKOCYTE ESTERASE, URINE NEGATIVE (NEGATIVE); NITRITE,URINE NEGATIVE (NEGATIVE); OCCULT BLOOD,URINE SMALL (NEGATIVE); PH,URINE 5.5 PH (5.0-7.5); PROTEIN,URINE NEGATIVE (NEGATIVE); UROBILINOGEN,URINE 0.2 (NORMAL) E.U./dL (NORMAL)
[2023-11-24 01:40] LABS: CLARITY,URINE CLEAR (CLEAR)
[2023-11-24 01:51] LABS: BACTERIA,URINE Rare /HPF (None Seen); HCG UR QUAL NEGATIVE; SQUAMOUS EPITHELIAL CELL,UR RARE Squamous (<= Few); WBC,URINE 0-3 /HPF (0-5)
--- NOTE | 2023-11-24 02:09 | ED Physician Documentation ---
History of Present Illness - Stated complaint Stated Complaint: - Chief complaint Chief Complaint: Abd Pain - History obtained from History obtained from: Patient - Additonal information Additional information: 48yF p/w L lower back pain radiating to the abdomen along with dysuria and hematuria with associated nausea today. denies hx kidney stone. denies increased frequency or fever. 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 - Present Medications Home Medications: Ambulatory Orders Medication Instructions Recorded Confirmed buPROPion HCL [Bupropion HCl Sr] 150 mg PO DAILY 11/24/23 11/24/23 cloNIDine [Catapres] 0.3 mg PO BID 11/24/23 11/24/23 oxyBUTYnin chloride [Oxybutynin 2.5 mg PO BID 11/24/23 11/24/23 Chloride] - Allergies Allergies/Adverse Reactions: Allergies Allergy/AdvReac Type Severity Reaction Status Date / Time No Known Drug Allergies Allergy Verified 11/24/23 01:15 - Social History Does the pt smoke?: Yes Smoking Status: Current every day smoker Does the pt drink ETOH?: Yes Does the pt have substance abuse?: No - Immunizations Immunizations are current?: Yes - POLST Patient has POLST: No PD ED PE NORMAL - Vitals Vital signs reviewed: Yes - General General: Alert and oriented X 3, No acute distress, Well developed/nourished - HEENT HEENT: Atraumatic, PERRL, EOMI - Neck Neck: Supple, no meningeal sign - Cardiac Cardiac: RRR - Respiratory Respiratory: No respiratory distress, Clear bilaterally - Abdomen Abdomen: Non tender, Non distended, No organomegaly - Back Back: No CVA TTP - Derm Derm: Normal color, Warm and dry Results - Vitals Vitals: Vital Signs - 24 hr 11/24/23 01:05 Temperature 36.9 C Heart Rate 82 Respiratory 18 Rate Blood Pressure 139/87 H O2 Saturation 97 Oxygen O2 Source Room air - Labs Labs: Laboratory Tests 11/24/23 11/24/23 00:20 00:20 Urine Color YELLOW Urine Clarity CLEAR Urine pH 5.5 Ur Specific [place] >=1.030 H Urine Protein NEGATIVE Urine Glucose (UA) NEGATIVE Urine Ketones NEGATIVE Urine Occult Blood SMALL H Urine Nitrite NEGATIVE Urine Bilirubin NEGATIVE Urine Urobilinogen 0.2 (NORMAL) Ur Leukocyte Esterase NEGATIVE Urine RBC 6-10 H Urine WBC 0-3 Ur Squamous Epith Cells RARE Squamous Urine Bacteria Rare Ur Microscopic Review INDICATED Urine Culture Comments NOT INDICATED Urine HCG, Qual NEGATIVE PD Medical Decision Making - ED course ED course: 48yF p/w L lower back pain radiating to the front, dysuria and hematuria. u/a shows no infection. discussed possiblity of a small kidney stone but she says she thinks her pain is too little for it to be this. patient agreeable to sti testing and knobber follow up. return precautions given. Departure - Departure Disposition: Home, Self Care Clinical Impression: Abdominal pain, Dysuria Condition: Stable Instructions: ED Dysuria Uncertain Cause Follow-Up: Zachery Kwan MD [Provider Admit Priv/Credential] - Comments: You were seen in the emergency department for painful urination and blood in the urine. It is possible you are passing a small kidney stone or have an STI. Please follow-up with knobber (referral provided) to discuss your symptoms and results of STI testing and return to the emergency department if you have any new or worsening symptoms or other concerns.
[2023-11-24 10:28] LABS: CHLAMYDIA TRACHOMATIS DNA NEGATIVE (NEGATIVE); NEISSERIA GONORRHOEAE DNA NEGATIVE (NEGATIVE); TRICHOMONAS VAGINALIS DNA NEGATIVE (NEGATIVE)
== END 2023-11-24 02:20 | disposition home or self-care (01) ==
LOC: ED 00:51
DX: R10.9 Unspecified abdominal pain (principal); M54.50 Low back pain, unspecified; R30.0 Dysuria; R31.9 Hematuria, unspecified; R11.0 Nausea; F17.200 Nicotine dependence, unspecified, uncomplicated; Z11.3 Encounter for screening for infections with a predominantly sexual mode of transmission; Z32.02 Encounter for pregnancy test, result negative
CPT/HCPCS: 81001; 81003; 81025; 81514; 87086; 87491; 87591; 87661; 99283

== ENCOUNTER 2024-01-13 21:52 | Emergency (ER) | payer OTHER, MEDICAID ==
[2024-01-14] MEDS: DEXAMETHASONE 10 MG/ML VIAL IM STA (00:47)
--- NOTE | 2024-01-14 00:52 | ED Physician Documentation ---
History of Present Illness - Stated complaint Stated Complaint: BILATERAL LEG PX/BACK PX - Chief complaint Chief Complaint: Ext Problem - History obtained from History obtained from: Patient - Additonal information Additional information: The patient comes to the emergency department chief complaint of right hip pain as well as general lower extremity pain in her joints. She has a history of rheumatoid arthritis and this feels like flares that she has had before. She denies any fevers or chills. No joint pains anywhere else. No other complaints at this time. She states that when this has happened before, she usually gets Decadron followed by steroid taper and it helps a lot. 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 - Present Medications Home Medications: Ambulatory Orders Medication Instructions Recorded Confirmed buPROPion HCL [Bupropion HCl Sr] 150 mg PO DAILY 11/24/23 11/24/23 cloNIDine [Catapres] 0.3 mg PO BID 11/24/23 11/24/23 oxyBUTYnin chloride [Oxybutynin 2.5 mg PO BID 11/24/23 11/24/23 Chloride] predniSONE [Deltasone] 10 mg PO [id number] #42 tab 01/14/24 - Allergies Allergies/Adverse Reactions: Allergies Allergy/AdvReac Type Severity Reaction Status Date / Time No Known Drug Allergies Allergy Verified 01/13/24 22:02 - Social History Does the pt smoke?: No Smoking Status: Never smoker Does the pt drink ETOH?: Yes Does the pt have substance abuse?: No - Immunizations Immunizations are current?: Yes - POLST Patient has POLST: No PD ED PE NORMAL - Vitals Vital signs reviewed: Yes - General General: Alert and oriented X 3, No acute distress, Well developed/nourished - HEENT HEENT: Atraumatic, PERRL, EOMI, Moist mucous membranes - Neck Neck: Supple, no meningeal sign - Cardiac Cardiac: RRR, No murmur - Respiratory Respiratory: No respiratory distress, Clear bilaterally - Abdomen Abdomen: Soft, Non tender, Non distended - Derm Derm: Normal color, Warm and dry, No rash - Extremities Extremities: No deformity, No edema, Other (No tenderness to palpation over knees or ankles. No pain with range of motion of right hip. Patient does have tenderness palpation just posterior to her right hip joint.) - Neuro Neuro: Alert and oriented X 3, No motor deficit, No sensory deficit - Psych Psych: Normal mood, Normal affect Results - Vitals Vitals: Vital Signs - 24 hr 01/13/24 21:59 Temperature 36.5 C Heart Rate 89 Respiratory 16 Rate Blood Pressure 158/106 H O2 Saturation 100 Oxygen O2 Source Room air PD Medical Decision Making - ED course Complexity details: considered differential, d/w patient ED course: I have given the patient a dose of Decadron here and prescribed a prednisone taper. We have discussed home management of symptoms and the need for follow- up. Departure - Departure Disposition: 01 Home, Self Care Clinical Impression: Rheumatoid arthritis flare Arthralgia Qualifiers: Joint pain location: hip Laterality: right Qualified Code(s): M25.551 - Pain in right hip Condition: Stable Instructions: ED Arthritis Rheumatoid Prescriptions: predniSONE [Deltasone] 10 mg PO [id number] #42 tab Forms: PCP List
[2024-01-14 01:28] VITALS: BP 148/88; O2SAT 99
== END 2024-01-14 01:26 | disposition home or self-care (01) ==
LOC: ED 21:52
DX: M06.9 Rheumatoid arthritis, unspecified (principal); M25.551 Pain in right hip
CPT/HCPCS: 96374; 99283

== ENCOUNTER 2024-02-28 21:43 | Emergency (ER) | payer OTHER, MEDICAID ==
[2024-02-28 22:02] VITALS: BP 152/88; O2SAT 99
--- NOTE | 2024-02-28 22:55 | ED Physician Documentation ---
History of Present Illness - Stated complaint Stated Complaint: BILAT LEG PX - Chief complaint Chief Complaint: Ext Problem - History obtained from History obtained from: Patient - Additonal information Additional information: HPI from patient. Patient complains of gradual onset of bilateral hip pain, waxing and waning but gradually progressive in intensity. The pain is worse with weight-bearing. Since the symptoms began, the pain has gradually spread to involve the entirety of both legs (from hips down to toes). Denies injury. Patient says she has had similar symptoms in the past which were attributed to rheumatoid arthritis; patient says that she responds well to oral steroids when the symptoms recur. 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 - Present Medications Home Medications: Ambulatory Orders Medication Instructions Recorded Confirmed buPROPion HCL [Bupropion HCl Sr] 150 mg PO DAILY 11/24/23 11/24/23 cloNIDine [Catapres] 0.3 mg PO BID 11/24/23 11/24/23 oxyBUTYnin chloride [Oxybutynin 2.5 mg PO BID 11/24/23 11/24/23 Chloride] predniSONE [Deltasone] 10 mg PO [id number] #42 tab 01/14/24 predniSONE [Deltasone] 10 mg PO [id number] #42 tab 02/28/24 - Allergies Allergies/Adverse Reactions: Allergies Allergy/AdvReac Type Severity Reaction Status Date / Time No Known Drug Allergies Allergy Verified 02/28/24 21:54 - Social History Does the pt smoke?: No Smoking Status: Never smoker Does the pt drink ETOH?: Yes Does the pt have substance abuse?: No - Immunizations Immunizations are current?: Yes - POLST Patient has POLST: No PD ED PE NORMAL - Vitals Vital signs reviewed: Yes - General General: Alert and oriented X 3, No acute distress, Well developed/nourished - Derm Derm: Normal color, Warm and dry, No rash - Extremities Extremities: No tenderness to palpate, No edema PD ED PE EXPANDED - Extremities Extremities: Other (FROM BLE but pain is exacerbated in proportion to degree of flexion (either hip)) Results - Vitals Vitals: Vital Signs - 24 hr 02/28/24 21:46 Temperature 36.1 C L Heart Rate 84 Respiratory 16 Rate Blood Pressure 152/88 H O2 Saturation 99 Oxygen O2 Source Room air PD Medical Decision Making - ED course Complexity details: considered differential, d/w patient ED course: Patient presents with bilateral lower extremity pain, atraumatic. She indicates she has had similar episodes in the past attributed to her rheumatoid arthritis and that she responds well to oral steroids. She is given 10 mg p.o. Decadron and I am electronically submitting a prescription for a 10-day tapering course of prednisone to patient's pharmacy of choice. Return precautions are reviewed. Departure - Departure Disposition: 01 Home, Self Care Clinical Impression: Rheumatoid arthritis flare Condition: Good Instructions: ED Arthritis Rheumatoid Prescriptions: predniSONE [Deltasone] 10 mg PO [id number] #42 tab Comments: You were given a 1-time dose of Decadron (steroid) orally in the emergency department and I have electronically submitted a prescription for a 10-day tapering course of prednisone to the [facility] pharmacy in [place]. Discharge Date/Time: 02/28/24 23:15
[2024-02-28] MEDS: DEXAMETHASONE 10 MG/ML VIAL PO STA (23:07)
[2024-02-28] MEDS: CHERRY SYRUP 10 ML UDC PO ONE (23:07)
== END 2024-02-28 23:15 | disposition home or self-care (01) ==
LOC: ED 21:43
DX: M06.9 Rheumatoid arthritis, unspecified (principal)
CPT/HCPCS: 99283; A9270

== ENCOUNTER 2024-03-28 17:42 | Emergency (ER) | payer OTHER, MEDICAID ==
--- NOTE | 2024-03-28 17:50 | ED Physician Documentation ---
History of Present Illness - Stated complaint Stated Complaint: SWOLLEN LEGS/ARMS - Chief complaint Chief Complaint: General - History obtained from History obtained from: Patient - History of Present Illness Timing: How many weeks ago (increasing general arthralgias, particularly knees/hips/shoulders/elbows, but also hands. Has had this progressive over the past week and is similar to Dx of RA flare she has had 3 times in the past few years. No baseline meds. Has seen Rheum wiht workup and treated with steroids for few weeks.) Quality: has seen Rheum previously couple years ago. Currently treating flares with some baseline arthralgias per pt that have increased for couple months. Has appt with new Rheum in May I believe she said. 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 - Present Medications Home Medications: Ambulatory Orders Medication Instructions Recorded Confirmed buPROPion HCL [Bupropion HCl Sr] 150 mg PO DAILY 11/24/23 11/24/23 cloNIDine [Catapres] 0.3 mg PO BID 11/24/23 11/24/23 oxyBUTYnin chloride [Oxybutynin 2.5 mg PO BID 11/24/23 11/24/23 Chloride] predniSONE [Deltasone] 10 mg PO [id number] #42 tab 01/14/24 predniSONE [Deltasone] 10 mg PO [id number] #42 tab 02/28/24 Albuterol Sulf [Ventolin Hfa 1 - 2 puffs INH Q4HR PRN #1 each 03/28/24 Inhaler] dexAMETHasone [Decadron] 4 mg PO DAILY #15 tablet 03/28/24 - Allergies Allergies/Adverse Reactions: Allergies Allergy/AdvReac Type Severity Reaction Status Date / Time No Known Drug Allergies Allergy Verified 02/28/24 21:54 - Social History Does the pt smoke?: No Smoking Status: Never smoker Does the pt drink ETOH?: Yes Does the pt have substance abuse?: No - Immunizations Immunizations are current?: Yes - POLST Patient has POLST: No PD ED PE NORMAL - Vitals Vital signs reviewed: Yes - General General: Alert and oriented X 3, Well developed/nourished - Derm Derm: Normal color, Warm and dry - Extremities Extremities: Other (major joints with mild swelling. No redness nor heat. ) Results - Vitals Vitals: Vital Signs - 24 hr 03/28/24 03/28/24 17:46 18:16 Temperature 36.5 C 36.5 C Heart Rate 86 87 Respiratory 16 20 Rate Blood Pressure 150/100 H 139/92 H O2 Saturation 98 98 Oxygen O2 Source Room air PD Medical Decision Making - ED course Complexity details: considered differential (general arthralgias with Dx of RA per pt, with prior treatments of flares without baseline meds. Has another Rheum appt in about 6 weeks. Currently wishing Rx for steroids. She says Rx with Decadron previously. Seems reasonable. Establishing new PCP in [place] as well. URI 3 weeks ago. ), d/w patient Reviewed Lab Results: no labs done at si time. She had had URI/viral symptoms about 3 weeks ago and could have been the trigger to start the RA flare. I will go with the states workup at this time and have her see new Rheum upcoming. Departure - Departure Disposition: Home, Self Care Clinical Impression: Arthralgia, Rheumatoid arthritis flare Condition: Stable Record reviewed to determine appropriate education?: Yes Prescriptions: Albuterol Sulf [Ventolin Hfa Inhaler] 1 - 2 puffs INH Q4HR PRN #1 each PRN Reason: Shortness Of Air/Wheezing dexAMETHasone [Decadron] 4 mg PO DAILY #15 tablet Comments: With a rheumatoid flareup, will commonly go a bit longer with the steroid dosing as you have done in the past. I wrote for the Decadron which she said works well for you. Initially 4 mg daily for the next 5 to 7 days. I would then decrease to half a tablet, 2 mg, daily for another week and then perhaps go to every other day for a week. At that point hopefully following up with your primary care and also based on your symptoms how you are doing. Might be able to discontinue it at that point although might need to step down to a lower dose before discontinuing. I also wrote for an albuterol inhaler to use 2 puffs 4 times a day as needed. 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 Forms: PCP List Discharge Date/Time: 03/28/24 18:23
[2024-03-28 18:06] VITALS: O2SAT 98
[2024-03-28] MEDS: dexAMETHasone 4 MG TABLET PO STA (18:22)
[2024-03-28 18:26] VITALS: BP 139/92
== END 2024-03-28 18:23 | disposition home or self-care (01) ==
LOC: ED 17:42
DX: M06.9 Rheumatoid arthritis, unspecified (principal)
CPT/HCPCS: 99283; 99284; J8540